=== PATIENT | female | born 1990 | race Caucasian/White ===

== ENCOUNTER 2018-08-04 00:25 | Emergency (ER) | payer OTHER ==
[~2018-08-04] VITALS: Ht 167.6 cm; Wt 74.8 kg
[2018-08-04 00:29] VITALS: Ht 167.6 cm; Wt 74.8 kg
[2018-08-04 02:53] VITALS: BP 117/67
== END 2018-08-04 02:53 | disposition short-term general hospital (02) ==
LOC: ED 00:25
DX: O26.893 Other specified pregnancy related conditions, third trimester (principal); O21.2 Late vomiting of pregnancy; R10.32 Left lower quadrant pain; Z3A.25 25 weeks gestation of pregnancy; Z88.1 Allergy status to other antibiotic agents

== ENCOUNTER 2019-11-21 07:45 | Emergency (ER) | payer OTHER ==
[~2019-11-21] VITALS: Ht 160 cm; Wt 76.7 kg
[2019-11-21 08:13] VITALS: Ht 160 cm; Wt 76.7 kg
[2019-11-21 09:49] VITALS: BP 131/80
== END 2019-11-21 09:49 | disposition home or self-care (01) ==
LOC: ED 07:45
DX: L50.9 Urticaria, unspecified (principal); Z88.1 Allergy status to other antibiotic agents
CPT/HCPCS: J0171; J1200; J1885; J2930; J3490; J7030